=== PATIENT | female | born 1950 | race Caucasian/White ===

== ENCOUNTER → 2018-08-24 16:49 | Outpatient (CLI) | payer MEDICARE, OTHER ==
[2018-08-24 18:36] LABS: APPEARANCE CLEAR (CLEAR); BILIRUBIN NEGATIVE (NEGATIVE); COLOR YELLOW (YELLOW); GLUCOSE NEGATIVE (NEGATIVE); KETONE NEGATIVE (NEGATIVE); NITRITE NEGATIVE (NEGATIVE); PROTEIN NEGATIVE (NEGATIVE); SPECIFIC GRAVITY 1.005 (1.005-1.020); UROBILINOGEN NORMAL (NORMAL)
[2018-08-27 08:07] LABS: BASOS 0 % (Not Estab.); CD4 - % CD4 POS. LYMPH 56.2 % (30.8-58.5); CD4 - ABSOLUTE CD4 HELPER 1461 /uL (359-1519); EOS 3 % (Not Estab.); EOS (ABSOLUTE) 0.2 x10E3/uL (0.0-0.4); HEMATOCRIT 44.7 % (34.0-46.6); HEMOGLOBIN 14.1 g/dL (11.1-15.9); LYMPHS 37 % (Not Estab.); LYMPHS (ABSOLUTE) 2.6 x10E3/uL (0.7-3.1); MCH 30.3 pg (26.6-33.0); MCHC 31.5 g/dL (31.5-35.7); MCV 96 fL (79-97); MONOCYTES 9 % (Not Estab.); MONOCYTES (ABSOLUTE) 0.6 x10E3/uL (0.1-0.9); NEUTROPHILS 51 % (Not Estab.); NEUTROPHILS (ABSOLUTE) 3.7 x10E3/uL (1.4-7.0); PLATELETS 244 x10E3/uL (150-379); RBC 4.65 x10E6/uL (3.77-5.28); WBC 7.2 x10E3/uL (3.4-10.8)
== END | disposition home or self-care (01) ==
LOC: D.LABREF 16:49
PROVIDERS: ATTEND Student in an Organized Health Care Education/Training Program
DX: B99.9 Unspecified infectious disease (principal); R35.0 Frequency of micturition